=== PATIENT | male | born 1980 | race Two or more races ===

== ENCOUNTER 2024-12-04 18:10 | Emergency (ER) | payer MEDICAID, SELFPAY ==
[2024-12-04 18:11] VITALS: BMI 23.5
[2024-12-04 18:23] VITALS: BP 160/90; PULSE 65; TEMP 36.9; O2SAT 98
--- NOTE | 2024-12-04 18:24 | EDNOTE_ITS ---
ED Dental RME/HPI General Chief complaint: Dental/Oral/Throat Stated complaint: STABBING PAIN IN L SIDE OF MOUTH X4 DAYS Time Seen by Provider: 12/04/24 18:15 Arrival date/time: 12/04/24 18:10 RME / HPI RME / HPI Narrative: 44-year-old male patient came in for evaluation regarding pain to the left lower molar, with gumline swelling and tenderness. Severity of symptoms moderate. This been ongoing for the last 4 days. Patient pain radiates to the left ear. No fever no difficulty swallowing denies any other complaints Related Data Previous Rx's ?Medication ?Instructions ?Recorded promethazine-DM 6.25 mg-15 mg/5 mL 5 ml PO Q6H PRN cou gh #473 mL 11/22/21 oral syrup amoxicillin 875 mg-potassium 1 tab PO BID #14 tabs 06/25 clavulanate 125 mg tablet ibuprofen 800 mg tablet 800 mg PO Q8H PRN pain #30 t abs 12/04/24 Allergies Allergy/AdvReac Type Severity Reaction Status Date / Time No Known Allergies Allergy Verified 12/04/24 18:15 Review of Systems Review of Systems Narrative Review of Systems: Review of system reviewed and within normal limits except mentioned in HPI ED Exam Narrative Physical exam: VITAL SIGNS: Reviewed. GENERAL APPEARANCE: Alert and interactive, follows commands, no acute distress, HEAD AND FACE: Non-traumatic. ENT: PERRL, pink conjunctivitis, eyelid no trauma, Mucous membrane moist. Left lower molar with cavity, and gumline swelling with tenderness, nonfluctuant NECK: Supple, nontender, no nuchal rigidity. CHEST: No tenderness, no crepitus, no paradoxical movement, no retractions. LUNGS: Clear, well ventilated, symmetric, no rales, no wheezing, no ronchi, no stridor, good breath sounds bilaterally. HEART: Regular rate, regular rhythm, no murmur, no gallops. ABDOMEN: Soft, positive bowel sounds, nondistended, no guarding, nontender, no rebound, no masses, RECTAL: Deferred. GENITAL: Deferred. NEUROLOGICAL: Gross motor function intact sensory function intact, Appropriate for age. MUSCULOSKELETAL: low back nontender, full range of motion. EXTREMITIES: Nontender, full range of motion. SKIN: Color pink, dry, no rash, no lacerations, no abrasions, no contusions. LYMPHATICS: Deferred. Course Quality Measures none Orders Category Date Time Status Amoxicillin/Pot Clav 875 [Augmentin 875] Med 12/04/24 18:24 Once 1 tab PO X1 ONE Ibuprofen Tab [Motrin Tab] Med 12/04/24 18:24 Once 800 mg PO X1 ONE Dental / Oral MDM Narrative MDM Narrative:: 44-year-old male patient came in for evaluation regarding pain to the left lower molar, with gumline swelling and tenderness. Severity of symptoms moderate. This been ongoing for the last 4 days. Patient pain radiates to the left ear. No fever no difficulty swallowing denies any other complaints Patient received Augmentin and Motrin. I&D is not needed at this time. Patient stable for discharge home. Patient data External records reviewed:: None Clinical information provided by:: patient Social determinants that could affect healthcare access:: none Patient has the following chronic illnesses:: None How is presenting disease/condition affected by chronic disease/condition?: no chronic disease Evaluation data The following diagnostics were reviewed and interpreted by me:: other (specify) (None) Lab and/or radiology exams considered but not ordered:: None Interpretation Summary: None Medications / Prescriptions Medications or Prescriptions considered but not ordered:: None Medication administrations:: Augmentin and Motrin Consultations Consultation(s) initiated? (list below): No Diagnosis Dental Differential Diagnosis: dental caries and toothache Most likely diagnosis given after review of the tests above:: Infected dental caries Admission Indicated Admission indicated?: not indicated Explain why admission is indicated or not indicated:: Stable Admission Request Was there a request for admission?: No Disposition Plan Disposition Plan: Discharge Discharge Attestation Discharge Attestation: The patient was given an opportunity to ask questions and understood the discharge instructions. Discharge instructions specifically effects, indications for sooner follow up or return to the emergency department, and the expected course of current diagnosis. Patient condition: Stable Discharge Plan Plan Patient Disposition: HOME (Self Care) Discharge Disposition comment: Stable Prescriptions/Referrals Prescriptions/Med Rec: New amoxicillin-pot clavulanate 875-125 mg tablet 1 tab PO BID Qty: 14 0RF ibuprofen 800 mg tablet 800 mg PO Q8H PRN (Reason: pain) Qty: 30 0RF No Action promethazine-DM 6.25-15 mg/5 mL syrup 5 ml PO Q6H PRN (Reason: cough) Qty: 473 0RF Problem List Clinical Impression: Infected dental caries Patient/Caregiver Discharge Instructions Discharge Activity: activity as tolerated Education Materials: ED Dental Cavity Additional Instructions: Thank you for the opportunity for serving you today. You are stable for discharged . You are advised to: Follow-up with your PCP in 1 to 2 days and ask for referral to dentist Return to ED for worsening of symptoms Increase oral fluids Take medication as prescribed Print Language: Moroccan Stand Alone Forms: [facility] Award Info., Patient Portal Info Letter PA/[employer] Supervising Physician PA/[employer] Supervising Physician: MD Nikole
[2024-12-04] MEDS: AMOXICILLIN/POT CLAV 875 TABLET 1 TAB PO (18:40)
[2024-12-04] MEDS: IBUPROFEN TAB 400 MG TABLET 800 MG PO (18:41)
== END 2024-12-04 18:42 | disposition home or self-care (01) ==
LOC: SERX 18:51
PROVIDERS: Emergency Provider Emergency Medicine
DX: K02.9 Dental caries, unspecified (principal)
CPT/HCPCS: 99283; A9270